=== PATIENT | female | born 1990 | race African-American/Black ===

== ENCOUNTER 2024-07-22 10:18 | Emergency (ER) | payer SELFPAY ==
[~2024-07-22] VITALS: Ht 157.5 cm; Wt 77.2 kg
[2024-07-22 10:20] VITALS: PULSE 115; TEMP 98.4; O2SAT 99
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
[2024-07-22 10:34] VITALS: BP 144/91
[2024-07-22 10:35] VITALS: RESP 16
== END 2024-07-22 11:17 ==
LOC: EEVIPCON 10:19 → ER 10:19
DX: T71.9XXA Asphyxiation due to unspecified cause, initial encounter (principal); X58.XXXA Exposure to other specified factors, initial encounter; Y93.89 Activity, other specified; Y92.89 Other specified places as the place of occurrence of the external cause; Y99.8 Other external cause status
CPT/HCPCS: 82948; 99283

== ENCOUNTER 2024-09-28 15:19 | Emergency (ER) | payer MEDICAID ==
[~2024-09-28] VITALS: Ht 157.5 cm; Wt 72.0 kg
[2024-09-28 15:28] VITALS: BP 124/82; PULSE 103; RESP 18; TEMP 98.1; O2SAT 100
[2024-09-28] MEDS ORDERED: TRIA15CR61 TOP (15:42)
[2024-09-28] MEDS ORDERED: METH4TAB81 PO (15:42)
--- NOTE | 2024-09-28 15:42 | Physician Documentation ---
History of Present Illness ~ Chief Complaint: Rash Stated Complaint: RASH Time Seen by MD: 15:37 Primary Medical Doctor: unknown HPI Patient is seen today with complaints of itchy erythematous rash in her arms and trunk and states it is spreading down to her thighs. Patient states she also maybe had a hallucination of maggots falling out of her skin under the ground. Patient states this happened yesterday. Patient states she feels she may have poison oak rash. Patient denies any chest pain or shortness of breath or abdominal pain or nausea, vomiting, diarrhea. She has no other concern or complaint at this time. Medication Reconciliation Allergies: Coded Allergies: No Known Allergies (Unverified , 09/28/24) Review of Systems Constitutional: Denies: chills, fever, weakness Eyes: Denies: pain, blurred vision ENT: Denies: ear pain, nose pain, throat pain, mouth pain Respiratory: Denies: cough, shortness of breath Cardiovascular: Denies: chest pain, palpitations Gastrointestinal: Denies: abdominal pain, nausea, vomiting Genitourinary: Denies: burning, dysuria Female Genitalia: Denies: vaginal discharge, pelvic pain Neurological: Denies: headache, dizziness Musculoskeletal: Denies: pain, swelling Integumentary: Denies: rash, lesions Allergic/Immunologic: Denies: hives, itching Hematologic/Lymphatic: Denies: no symptoms reported Psychiatric: Denies: depression, anxiety Physical Exam Vital Signs: Temperature: 98.1, Source: Temporal, Heart Rate: 103, Respiratory Rate: 18, BP: 124/82, Pulse Oximetry: 100, Weight: 72.050 Oxygen Flow Rate: 0 Physical Exam General: Awake and Alert, no acute distress. HEENT: Conjunctiva pink, Sclera clear, Mucus Membranes moist. Neck: Supple without masses and tenderness. Resp: Unlabored. Lungs clear to auscultation bilaterally. Heart: Regular Rate and rhythm, normal S1 and S2 without murmur, rub or gallop. Abdomen: Soft and non tender no organomegaly Extremities: No cyanosis,clubbing or edema. Skin: Patient on exam does have erythematous raised rash consistent with a poison oak dermatitis of her upper arms and trunk. Patient does have excoriations visible. I do not appreciate any sign of secondary bacterial infection. Progress Results/Orders Results/Orders Vital Signs 7/3/25 15:28 Temp 98.1 Pulse 103 Resp 18 B/P (MAP) 124/82 Pulse Ox 100 O2 Flow Rate 0 Medical Decision Making Findings Patient is seen today with complaints of itchy erythematous rash in her arms and trunk and states it is spreading down to her thighs. Patient states she also maybe had a hallucination of maggots falling out of her skin under the ground. Patient states this happened yesterday. Patient states she feels she may have poison oak rash. Patient denies any chest pain or shortness of breath or abdominal pain or nausea, vomiting, diarrhea. She has no other concern or complaint at this time. Patient was given dose of Decadron 10 mg IM in the ED today along with triamcinolone 0.5 % topical cream and Medrol Dosepak sent to patient's pharmacy. Patient will follow up with primary care in 2-5 days if no better as needed sooner. Return to ED with any worsening, concerning or changing symptoms. I strongly advised patient follow up with primary care for referral to psychiatry for eval of possible hallucinations. Departure Disposition: 01 HOME / SELF CARE / HOMELESS Impression: Primary Impression: Allergic contact dermatitis Qualified Codes: L23.7 - Allergic contact dermatitis due to plants, except food Condition: Improved Discharge Instructions: Contact Dermatitis Additional Instructions: Patient was given dose of Decadron 10 mg IM in the ED today along with triamcinolone 0.5 % topical cream and Medrol Dosepak sent to patient's pharmacy. Patient will follow up with primary care in 2-5 days if no better as needed sooner. Return to ED with any worsening, concerning or changing symptoms. I strongly advised patient follow up with primary care for referral to psychiatry for eval of possible hallucinations. Referrals: NO PRIMARY CARE PROVIDER (PCP) Prescriptions Triamcinolone Acetonide 0.5% Crm* (Kenalog 0.5% Crm*) 15 Gm Tube 1 APPLIC TOP Q12H for 30 Days, #30 GM apply to affected area(s) Prov: EDUARDO REEVES 09/28/24 Methylprednisolone (Medrol Dosepak) 4 Mg Tab.ds.pk 0 PO UD, #21 TAB 0 Refills take 6 Pills Day 1, 5 Pills Day 2, 4 Pills Day 3, 3 Pills Day 4, 2 Pills Day 5 and 1 pill Day 6 Prov: EDUARDO REEVES 09/28/24 Signature Scribe Signature: No scribe Attestation: No scribe EDUARDO REEVES PAC Sep 28, 2024 15:42
[2024-09-28] MEDS: dexamethasone sod phosphate 10mg/ml inj IM STA (15:55)
[2024-09-28 16:20] LABS: LEUKOCYTE ESTERASE ,URINE NEGATIVE (Neg); NITRITES, URINE NEGATIVE (Neg); OCCULT BLOOD,URINE NEGATIVE (Neg)
[2024-09-28 16:26] LABS: UA COLLECTION TYPE CLN CATCH MIDSTREAM
[2024-09-28 16:48] LABS: RENAL CELLS, URINE FEW /HPF; SQUAMOUS EPITHELIAL CELL,UR MANY /LPF (FEW)
[2024-10-02] MEDS ORDERED: SULF1TAB49 PO (00:01)
[2024-10-02] MEDS ORDERED: HUM7525 SQ (00:22)
== END 2024-09-28 16:23 | disposition home or self-care (01) ==
LOC: ER 15:20
DX: L23.9 Allergic contact dermatitis, unspecified cause (principal)
CPT/HCPCS: 81001; 96372; 99283; J1100